=== PATIENT | male | born 2000 | race Hispanic/Latino ===

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

== ENCOUNTER 2019-08-11 15:46 | Emergency (ER) | payer OTHER ==
[~2019-08-11] VITALS: Ht 177.8 cm; Wt 78.2 kg
[2019-08-11 15:46] VITALS: BP 138/68
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
[2019-08-11] MEDS ORDERED: IBUP-1022 PO (18:49)
--- NOTE | 2019-08-12 08:36 | REP ---
REASON: Pain. PRIORS: None. COMPARISON: No priors. FINDINGS: Three views of the right shoulder were performed. The acromioclavicular and glenohumeral relationships are within normal limits. There is no acute fracture or destructive osseous lesions. Electronically Signed by Min Weller DO 08/12/2019 09:00 A
== END 2019-08-11 19:10 | disposition home or self-care (01) ==
LOC: M ED 15:46
DX: S40.011A Contusion of right shoulder, initial encounter (principal); S13.8XXA Sprain of joints and ligaments of other parts of neck, initial encounter; V43.62XA Car passenger injured in collision with other type car in traffic accident, initial encounter